=== PATIENT | female | born 1990 | race Hispanic/Latino ===

== ENCOUNTER 2018-10-08 06:59 | Outpatient (CLI) | payer OTHER | END 2018-10-08 08:20 | disposition home or self-care (01) | LOC: M LDO 06:59 | DX: O99.89 Other specified diseases and conditions complicating pregnancy, childbirth and the puerperium (principal); N89.8 Other specified noninflammatory disorders of vagina; Z3A.29 29 weeks gestation of pregnancy | CPT/HCPCS: 59025 ==

== ENCOUNTER 2018-12-28 15:01 | Inpatient (IN) | payer OTHER ==
[2018-12-28] VITALS (11 sets, daily range): BP systolic 112–135; BP diastolic 60–80
[~2018-12-28] VITALS: Ht 157.5 cm; Wt 77.9 kg
[~2018-12-28 15:01] MED LIST: PRENTAB9 PO
[2018-12-28] MEDS ORDERED: LACTATED RINGER'S 1000 ML IV STA (15:49)
--- NOTE | 2018-12-28 15:57 | HPEPDOC ---
Obstetrical History & Physical General Date of Admission Dec 28, 2018 at 15:01 History of Present Illness 27 y/o at 41+1 for scheduled IOL due to pending postdates. No complication s this preg. No LOF/VB/reg ctx's. Pos FM. Care Care: Good Care Dating Final EDC by: LMP, 1st trimester ([place]) Past Medical History Past Obstetrical History : Past Obstetrical History: Primgravida Past Medical History Medical History denies Surgical History: Denies/None Family History Significant Family History: No pertinent family hx Social History Marital Status: Single Psychosocial History: No pertinent psych hx * Smoker: non-smoker Alcohol: Denies Drugs: denies Abuse Violence Screening Have you been hit/kicked/slapp: No Have you been sexually assault: No Imunizations Tdap status: current Influenza Status: current Allergies Coded Allergies: No Known Allergies (Unverified , 10/08/18) Medications Scheduled Multivitamins/ ( 27-0.8 mg) 1 Tab Tab, 1 TAB PO DAILY Physical Examination Physical Examination GENERAL: Alert and oriented times three. ABDOMEN: Gravid and non-tender to touch. FETUS: Is vertex (VTX) by sterile vaginal examination (SVE), 1/50/-4/vtx by limited TAUS EXTREMITIES: No edema. Laboratory Data 24H LABS Laboratory Tests 2 12/28/18 15:33: Serology Scanned Report Hepatitis B Testing Urine Culture: No Growth Pertinent Laboratoy Data Blood Type: O+ RBC Antibody Screen: Negative HIV: Negative Hepatitis B: Negative Hepatitis C: Unknown Rapid Plasma Reagin: Nonreactive Rubella: Immune Varicella: Immune Chlamydia/Gonorrhea: Negative Group B Streptococcus: Negative Quad Screen Test: Negative Cystic Fibrosis: Negative Glucose Tolerance Test: 97 Anatomy Ultrasound Placenta Location: Anterior Normal Anatomy: Yes Placenta Previa: No Assessment Variability: Moderate Accelerations: Positive Decelerations: None Tocometer Contractions: No Assessment/Plan Assessment 41+1 for IOL Plan Admit and orient. Nursing Home Admissions Director and consent. Diet: clears Group B Streptococcus (GBS) neg Labs and intravenous (IV) per unit protocol. Counseled on Pitocin, cytotec, bulb and induction of labor (IOL). Lactated Ringers (LR): Bolus 1000 mL if decides on epidural, then at 125 mL/hr. Anticipate normal spontaneous delivery () C-S as appropriate. Sessions SESSIONS,DELMY Kim MD Dec 28, 2018 15:57
[2018-12-28] MEDS ORDERED: miSOPROStol 50 MCG 1/2 TAB (S0191) PO PRN (16:00)
[2018-12-28 16:20] LABS: HEMATOCRIT 33.9 % (36.0-47.0); HEMOGLOBIN 11.5 g/dl (12.0-15.5); MEAN CORPUSCULAR HEMOGLOBIN 29.8 pg (27.0-33.0); MEAN CORPUSCULAR HGB CONC 33.9 g/dl (32.0-36.5); MEAN CORPUSCULAR VOLUME 87.8 fl (80.0-96.0); PLATELET COUNT, AUTOMATED 314 10^3/uL (150-450); RED BLOOD COUNT 3.86 10^6/uL (4.00-5.40); WHITE BLOOD COUNT 9.2 10^3/uL (4.0-10.0)
[2018-12-28] MEDS: LR 1,000 ML IV SCH ×2 (16:34→21:52)
--- NOTE | 2018-12-28 21:30 | IPNPDOC ---
Text Note Date of Service The patient was seen on 12/28/18. NOTE FHT mostly Cat 1, other than a 7 min decel that was random, unprovoked and now completely resolved Cx now is /-3, more ant and softer Cook balloon placed 80U/40V Will transition to pitocin, plan on recheck 1-2 hrs after cook balloon out Sessions VS,Janet, I+O VSJanet I+O Laboratory Tests 12/28/18 16:14 Red Blood Count 3.86 L, Mean Corpuscular Volume 87.8, Mean Corpuscular Hemoglobin 29.8, Mean Corpuscular Hemoglobin Concent 33.9, Red Cell Distribution Width 13.3 Vital Signs Date Time Temp Pulse Resp B/P (MAP) Pulse Ox O2 Delivery O2 Flow Rate FiO2 12/28/18 18:43 97.4 77 18 135/78 (97) SESSIONS,EDLMY Kim MD Dec 28, 2018 21:30
[2018-12-28] MEDS ORDERED: LR 1,000 ML IV SCH (21:33)
[2018-12-28] MEDS ORDERED: OXYTOCIN DRIP 30 UNITS in APPROPRIATE DILUENT 1 EA IV SCH (21:45)
[2018-12-29] VITALS (34 sets, daily range): BP systolic 89–154; BP diastolic 51–90
--- NOTE | 2018-12-29 06:54 | IPNPDOC ---
Text Note Date of Service The patient was seen on 12/29/18. NOTE FHT Cat 1, reg ctx's, pain well controlled thus far On 18 mu/min pitocin Cx /-2 Plan on pitocin rest for ~1 hour, eat bfast and restart pitocin thereafter Sessions MD GROVER,Janet, I+O VSJanet I+O Laboratory Tests 12/28/18 16:14 Red Blood Count 3.86 L, Mean Corpuscular Volume 87.8, Mean Corpuscular Hemoglobin 29.8, Mean Corpuscular Hemoglobin Concent 33.9, Red Cell Distribution Width 13.3 Vital Signs Date Time Temp Pulse Resp B/P (MAP) Pulse Ox O2 Delivery O2 Flow Rate FiO2 12/29/18 04:34 97.7 68 18 111/63 (79) I&O- Last 24 Hours up to 6 AM 12/29/18 05:59 Output Total 2500 ml Balance -2500 ml SESSIONS,DELMY Kim MD Dec 29, 2018 06:54
[2018-12-29] MEDS: LR 1,000 ML IV SCH (07:49)
--- NOTE | 2018-12-29 12:14 | IPNPDOC ---
Text Note Date of Service The patient was seen on 12/29/18. NOTE Now s/p pit rest and breakfast this AM. Now with 3 hrs pitocin, at 10 mu/min Cx unchanged other than station, now 5/75/-1/vtx well applied, AROM with clr fluid Doing well. Recheck in 2-3 hrs, sooner prn. Sessions VS,Janet, I+O VS, Janet I+O Laboratory Tests 12/28/18 16:14 Red Blood Count 3.86 L, Mean Corpuscular Volume 87.8, Mean Corpuscular Hemoglobin 29.8, Mean Corpuscular Hemoglobin Concent 33.9, Red Cell Distribution Width 13.3 Vital Signs Date Time Temp Pulse Resp B/P (MAP) Pulse Ox O2 Delivery O2 Flow Rate FiO2 12/29/18 09:57 97.0 80 16 107/55 (72) I&O- Last 24 Hours up to 6 AM 12/29/18 06:00 Intake Total 2328 ml Output Total 2500 ml Balance -172 ml SESSIONS,DELMY Kim MD Dec 29, 2018 12:14
[2018-12-29] MEDS ORDERED: NALBUPHINE HCL 10 MG/ML AMP (J2300) IM ONE (12:15)
[2018-12-29] MEDS ORDERED: PROMETHAZINE INJ 25 MG/ML VIAL (J2550) IV ONE (12:15)
[2018-12-29] MEDS ORDERED: NALBUPHINE HCL 10 MG/ML AMP (J2300) IV ONE (12:15)
[2018-12-29] MEDS ORDERED: FENTANYL 2MCG/ML ROPIVACAINE 0.2% IN 0.9% NACL 100ML IVBAG As Ordered ONE (13:47)
[2018-12-29] MEDS ORDERED: ePHEDrine SULFATE 25 MG/5 ML(5MG/ML) SYRINGE IV PRN (15:45)
[2018-12-29] MEDS ORDERED: EPIDURAL COMMENT XX SCH (15:45)
[2018-12-29] MEDS ORDERED: LACTATED RINGER'S 1000 ML IV PRN (15:45)
[2018-12-29] MEDS ORDERED: REFRIGERATOR IV KEYS XX PRN (15:45)
[2018-12-29] MEDS ORDERED: FENTANYL/ROPIVACAINE/NACL BAG 100 ML EPIDURAL SCH (15:45)
[2018-12-29] MEDS ORDERED: diphenhydrAMINE INJ 50MG/ML VIAL (J1200) IV PRN (15:45)
[2018-12-29] MEDS ORDERED: ONDANSETRON 4MG/2ML VIAL (J2405) IV PRN ×2 (15:45→22:45)
[2018-12-29] MEDS ORDERED: EPIDURAL/PCA KEYS XX PRN (15:45)
[2018-12-29] MEDS ORDERED: NALOXONE INJ 0.4 MG/1 ML VIAL (J2310) IV PRN (15:45)
--- NOTE | 2018-12-29 16:39 | IPNPDOC ---
Text Note Date of Service The patient was seen on 12/29/18. NOTE Epidural now in place and pt feeling well FHT Cat 1 Pitocin at 16 mu/min Cx unchanged, IUPC placed If MVU's adeq will need a for arrest of dilation If inadeq will incr her pitocin to adequacy Sessions VS,Janet, I+O VSJanet, I+O Vital Signs Date Time Temp Pulse Resp B/P (MAP) Pulse Ox O2 Delivery O2 Flow Rate FiO2 12/29/18 15:53 97.3 82 16 92/51 (65) 12/29/18 14:22 99 I&O- Last 24 Hours up to 6 AM 12/29/18 06:00 Intake Total 2328 ml Output Total 2500 ml Balance -172 ml SESSIONS,DELMY Kim MD Dec 29, 2018 16:39
--- NOTE | 2018-12-29 20:37 | IPNPDOC ---
Text Note Date of Service The patient was seen on 12/29/18. NOTE FHT Cat 1, adeq MVU's last 4 hrs Cx unchanged, IUPC removed I rec for arrest of dilation, failed IOL IC obtained, Anesth/OR team mobilizing Sessions VS,Janet, I+O VS, Janet I+O Vital Signs Date Time Temp Pulse Resp B/P (MAP) Pulse Ox O2 Delivery O2 Flow Rate FiO2 12/29/18 18:51 98.0 71 18 114/59 (77) 12/29/18 14:22 99 I&O- Last 24 Hours up to 6 AM 12/29/18 06:00 Intake Total 2328 ml Output Total 2500 ml Balance -172 ml SESSIONS,DELMY Kim MD Dec 29, 2018 20:37
[2018-12-29] MEDS ORDERED: AZITHROMYCIN INJ 500 MG, VIAL MATE ADAPTER 1 EACH in D5W 250 ML IV ONE (20:45)
[2018-12-29] MEDS ORDERED: BICITRA 30ML SOLN UDC PO ONE (20:45)
[2018-12-29] MEDS ORDERED: OXYTOCIN INJ 10 UNITS/ML VIAL (J2590) As Ordered ONE (20:51)
[2018-12-29] MEDS ORDERED: LIDOCAINE 2% W/EPIN INJ 20ML **PRES FREE As Ordered ONE (20:51)
[2018-12-29] MEDS ORDERED: SODIUM BICARBONATE 8.4% INJ 50MEQ 50 ML VIAL As Ordered ONE (20:58)
[2018-12-29] MEDS ORDERED: miSOPROStol 200 MCG TAB (S0191) As Ordered ONE (21:32)
[2018-12-29] MEDS ORDERED: MORPHINE PRES-FREE INJ 10 MG/10 ML VIAL (J2274) As Ordered ONE (21:35)
[2018-12-29] MEDS ORDERED: ONDANSETRON 4MG/2ML VIAL (J2405) As Ordered ONE (21:35)
[2018-12-29] MEDS ORDERED: KETOROLAC 60 MG/2 ML VIAL (J1885) As Ordered ONE (21:42)
[2018-12-29] MEDS ORDERED: OXYTOCIN DRIP 30 UNITS in APPROPRIATE DILUENT 1 EA IV SCH (21:58)
[2018-12-29] MEDS ORDERED: MEASLES,MUMPS,RUBELLA VACCINE INJ (MMR-II) (90707) SC SCH (22:00)
[2018-12-29] MEDS ORDERED: PERCOCET 5MG/325MG TAB PO PRN ×3 (22:00→22:45)
[2018-12-29] MEDS ORDERED: METHYLERGONOVINE MALEATE 0.2 MG/ML VIAL (J2210) IM ONE (22:00)
[2018-12-29] MEDS ORDERED: RHOGAM 300 MCG (1500 IU) INJ (J2790) IM SCH (22:00)
[2018-12-29] MEDS ORDERED: miSOPROStol 200 MCG TAB (S0191) PR ONE (22:00)
[2018-12-29] MEDS ORDERED: METOCLOPRAMIDE INJ 10MG/2ML VIAL (J2765) IV PRN ×2 (22:00→22:45)
[2018-12-29] MEDS ORDERED: OXYTOCIN 30 UNITS IN 0.9% NaCl 500ML IV BAG (J2590) As Ordered ONE (22:06)
[2018-12-29] MEDS ORDERED: fentaNYL 100 MCG/2 ML INJECTION (J3010) IV PRN (22:45)
[2018-12-29] MEDS ORDERED: LR 1,000 ML IV SCH (22:45)
[2018-12-30] VITALS (8 sets, daily range): BP systolic 103–134; BP diastolic 55–79
[2018-12-30] MEDS: KETOROLAC 30 MG/ML VIAL (J1885) IV SCH ×3 (05:02→16:25)
[2018-12-30] MEDS ORDERED: LR 1,000 ML IV SCH (07:15)
[2018-12-30 07:20] LABS: HEMOGLOBIN 10.3 g/dl (12.0-15.5); MEAN CORPUSCULAR HGB CONC 34.3 g/dl (32.0-36.5); MEAN CORPUSCULAR VOLUME 87.5 fl (80.0-96.0); PLATELET COUNT, AUTOMATED 246 10^3/uL (150-450); RED BLOOD COUNT 3.43 10^6/uL (4.00-5.40)
[2018-12-30] MEDS: DOCUSATE SODIUM 100 MG CAP PO SCH ×2 (07:50→21:16)
[2018-12-30] MEDS: PRENATAL VITAMINS CHEWABLE TABLET PO SCH (07:50)
--- NOTE | 2018-12-30 08:07 | IPNPDOC ---
Text Note Date of Service The patient was seen on 12/30/18. NOTE POD1 PCD States feeling well, pain controlled with prescribed meds. Baby bonding and feeding well. No heavy VB. Lochia slowing. Ambulatory. Tolerating PO without issues. UO adequate with mccullough in place, but just barely. VSSAF NAD A&O RRR CTAB LE no C/C/E Ut at U-1, firm Bandage C/D/I CBC this AM appropriate a/p: Doing well. Cont routine postop care. LR at 125/hr now to improve her UOP. D/C likely in 48 hours. PFS consult due to her being all alone and recove ring from a . Sessions VS,Janet, I+O VSJanet I+O Laboratory Tests 12/30/18 06:57 Red Blood Count 3.43 L, Mean Corpuscular Volume 87.5, Mean Corpuscular Hemoglobin 30.0, Mean Corpuscular Hemoglobin Concent 34.3, Red Cell Distribution Width 13.5 Vital Signs Date Time Temp Pulse Resp B/P (MAP) Pulse Ox O2 Delivery O2 Flow Rate FiO2 12/30/18 06:31 98.1 81 18 113/55 (74) 100 I&O- Last 24 Hours up to 6 AM 12/30/18 05:59 Intake Total 2175 ml Output Total 3275 ml Balance -1100 ml SESSIONS,DELMY Kim MD Dec 30, 2018 08:07
[2018-12-31] MEDS: IBUPROFEN 800 MG TAB PO SCH ×3 (00:48→15:47)
[2018-12-31 02:00] VITALS: BP 127/69
[2018-12-31 06:44] VITALS: BP 117/71
--- NOTE | 2018-12-31 07:52 | IPNPDOC ---
Progress Note Date of Service: Dec 31, 2018 Day#: 2 Progress Note PPD/POD 2 SUBJECT: Ramesh is a 28yo [id number] s/p uncomplicated PLTCS at 41w2d on 12/29 for arrest of dilation when undergoing IOL for LTG, doing well POD 2. She has not been ambulating much. Voiding spontaneously without issue and tolerating regular diet. Breast feeding with nursing assistance. Reports lochia is like a normal period. Pain well controlled with just motrin overnight. No f/c/n/v/CP/SOB. Nursing reported patient being very "needy" overnight, constantly calling the nurse in to help with very basic things such as throwing wrappers into the trash. Also needed help with latching and didn't really ambulate. They state she was hostile regarding the fact that baby had PKU testing and umbilical cord cla mp was removed. She declined vitals a few times. Patient's story is different- reports nurses were "rude" to her last night. That they "weren't doing their job". She told me on first encounter this morning her partner is "in the field" and she plans to take a taxi home from the hospital. She has absolutely no help at home, no family assistance. She filled out paternity forms yesterday, so there is obviously something deeper going on. OBJECTIVE: VITAL SIGNS: Within normal limits, afebrile. Alert and oriented times three. Abdomen: Fundus firm at U-2. Soft, appropriately tender to palpation. pfannensteil incision covered by dry clean dressing. Extremities: no pain with palpation of calves Labs: pre-op H/H 11.5/33.9 post-op H/H 10.3/30 ASSESSMENT: Ramesh is a 28yo [id number] s/p uncomplicated PLTCS at 41w2d on 12/29 for arrest of dilation when undergoing IOL for LTG, doing well POD 2. Vitals within normal limits, afebrile, hemodynamically stable with no evidence of infection. Has some social issues going on as noted in HPI. PLAN: 1. Plan for discharge home tomorrow 2. Had long discussion with patient and day nurse regarding today's goal of fresh start. Social work has been consulted and patient is amenable to talking with them. I discussed that she needs to ambulate multiple times today and demonstrate that she can take care of both herself and her baby when she goes home. Will also involve the [employer] lia[employer] today. 2. Motrin TID for pain. Percocet prn 3. Encourage ambulation and use of IS 4. Regular diet Dr. Deepthi Thorne MD VS, I&O, 24H, Fishbone Vital Signs/I&O Vital Signs Date Time Temp Pulse Resp B/P (MAP) Pulse Ox O2 Delivery O2 Flow Rate FiO2 12/31/18 06:44 97.6 75 19 117/71 (86) 100 l I&O- Last 24 Hours up to 6 AM 12/31/18 06:00 Intake Total 2500 ml Output Total 2900 ml Balance -400 ml Deepthi Thorne MD Dec 31, 2018 07:52
[2018-12-31] MEDS: DOCUSATE SODIUM 100 MG CAP PO SCH ×2 (08:39→20:12)
[2018-12-31] MEDS: PRENATAL VITAMINS CHEWABLE TABLET PO SCH (08:40)
[2018-12-31] MEDS ORDERED: INFLUENZA QUADRIVALENT PF VACCINE 0.5ML SYRINGE (90686) IM ONE (09:00)
--- NOTE | 2018-12-31 13:00 | RO ---
DATE OF PROCEDURE: 12/29/2018 SURGEON: Dr. Boris De La Cruz BASKETBALL PLAYER: Nurse car repairer apprentice Dayanna Ruelas, who was essential in retraction of tissue planes, delivery of the baby and closure of all tissue planes. PREOPERATIVE DIAGNOSIS: Failed induction of labor with arrest dilation. POSTOPERATIVE DIAGNOSIS: Failed induction of labor with arrest dilation. ANESTHESIA: Epidural. ESTIMATED BLOOD LOSS: 700 mL. DRAINS: 100 mL in the Adamson catheter. FLUIDS REPLACED: 1300 mL of lactated Ringer's. PREOPERATIVE ANTIBIOTICS: Ancef 2 grams IV and azithromycin 500 mg. OPERATIVE PROCEDURE: Primary low transverse section. SPECIMENS: None. INDICATION: The patient was diagnosed with an arrest of dilation despite amniotomy and adequate contractions as measured with an intrauterine pressure catheter. FINDINGS: Low transverse uterine incision, clear fluid, straight occiput posterior presentation, male, score 8 and 9, 2960 grams, 6 pounds 8 ounces. DESCRIPTION: The patient was taken to the operating room with an IV in place. She was placed in dorsal supine position with a leftward tilt and prepped and draped after the epidural bolus was thought to be adequate. She already had a Adamson catheter in place. heart tones prior to prep were normal. She was prepped and draped in normal sterile fashion and a Pfannenstiel skin incision was carried down to the layer of fascia, which was nicked in the midline and extended bilaterally to the extent of the skin incision. Stanley clamps were placed on the superior and inferior aspects of the fascial incision and the underlying rectus muscles were dissected off sharply. The midline in the rectus muscles were and peritoneum was breeched with surgeon's digit and a stretching maneuver from both sides created an adequate peritoneal window. A bladder blade was placed. A bladder flap was created. A low transverse uterine incision was carried down to the amnion which was breeched and clear fluid was noted. The 's head was flexed, elevated and with fundal pressure from above easily delivered through the hysterotomy and through the skin incision. The corpus followed and infant was noted to have good tone and a spontaneous cry. The cord was clamped times two and cut and the infant was handed to the waiting resuscitation team. Cord blood was obtained. Fundal massage was performed with Pitocin in the IV running wide open and when the uterus was noted to be mich down the placenta was delivered with traction with a hysterotomy without difficulty. There were no trailing membranes. The uterus was delivered through the abdominal incision, wrapped in warm sponge and cleared of all clots and debris and dry sponges. The hysterotomy was closed from left to right with a running suture of #0 Vicryl locked. Imbrication stitch was used for left to right with #0 Monocryl. Irrigation was performed behind the uterus. The uterus was returned to the abdomen and any and all blood or clots were removed from the colic gutters and the vesicouterine peritoneum. Hemostasis was confirmed from the hysterotomy site. The peritoneum was closed from superior to inferior with running #2-0 Vicryl and the fascia was closed with a running #0 Vicryl from left to right. The subcutaneous tissue was copiously irrigated, made to be hemostatic and reapproximated #2-0 Vicryl from left to right. The skin was closed with a subcutaneous #4-0 Monocryl from left to right without difficulty. An Optifoam dressing was placed over the incision. The patient's legs were frogged and bimanual exam was performed with the uterus noted to be firm and at U. A small amount of clot was removed from the vagina and cervix. Of note, a single dose of intramuscular (IM) Methergine 0.2 was given during the closure of the lower uterine segment incision, which aided in her pain and sufficient tone to the uterus. I then prophylactically also at the end of the case placed 1000 mcg of Cytotec per rectum due to the patient have been fairly high dosed of Pitocin for greater than 24 hours. The patient was transferred from the operating room (OR) to the postanesthesia care unit (PACU) in stable condition with all counts correct including sponge, needle and instruments. TISH
[2018-12-31 15:05] VITALS: BP 121/69
[2018-12-31 18:00] VITALS: BP 131/82
[2019-01-01] MEDS: IBUPROFEN 800 MG TAB PO SCH ×3 (00:19→16:13)
[2019-01-01 06:13] VITALS: BP 151/93
[2019-01-01 07:56] VITALS: BP 147/75
[2019-01-01] MEDS: DOCUSATE SODIUM 100 MG CAP PO SCH ×2 (08:09→21:07)
--- NOTE | 2019-01-01 08:23 | IPNPDOC ---
Progress Note Date of Service: Jan 01, 2019 Progress Note SUBJECT: Ramesh is a 28yo [id number] s/p uncomplicated PLTCS at 41w2d on 12/29 for arrest of dilation when undergoing IOL for LTG, doing well POD 3. Difficulties interacting with nursing last night. Called security as wrong NSAID was given. Apparently not sleeping well. Not using narcotics as she doesn't want to be impaired caring for the baby. No f/c/n/v/CP/SOB. She plans to take a taxi home from the hospital and has no one at home to help her. I discussed parternity leave policy as she has absolutely no help at home, no family assistance. She filled out paternity forms yesterday. OBJECTIVE: VITAL SIGNS: Within normal limits, afebrile. She had elevated BP while upset this morning, but then 141/75 on repeat just now. Alert and oriented times three. Abdomen: Fundus firm at U-2. Soft, appropriately tender to palpation. pfannensteil incision covered by dry clean dressing. Does not want dressing off--reports Dr. De La Cruz wants two weeks on. Extremities: no pain with palpation of calves Labs: pre-op H/H 11.5/33.9 post-op H/H 10.3/30 ASSESSMENT: Ramesh is a 28yo P1 s/p uncomplicated PLTCS at 41w2d on 12/29 for arrest of dilation when undergoing IOL for LTG, doing well medically POD 3. Vitals within normal limits, afebrile, hemodynamically stable with no evidence of infection. Has some social issues going on as noted in HPI. PLAN: 1. Plan for discharge home after PFS consult. 2. Motrin TID for pain. Percocet prn 3. Encourage ambulation and use of IS 4. Regular diet VS, I&O, 24H, Fishbone Vital Signs/I&O Vital Signs Date Time Temp Pulse Resp B/P (MAP) Pulse Ox O2 Delivery O2 Flow Rate FiO2 01/01/19 07:56 147/75 (99) 01/01/19 06:13 97.0 78 18 12/31/18 15:05 97 WALTER CUENCA MD Jan 01, 2019 08:23
--- NOTE | 2019-01-01 08:28 | DS.PDOC ---
Discharge Summary General Date of Admission Dec 28, 2018 at 15:01 Date of Discharge 01/01/19 Discharge Summary PROCEDURES PERFORMED DURING STAY: Induction of Labor. 2) . ADMITTING DIAGNOSES: 1. Advanced gestational age. DISCHARGE DIAGNOSES: 1. Same COMPLICATIONS/CHIEF COMPLAINT: Induction. HISTORY OF PRESENT ILLNESS: Admitted at 41 2/7 weeks for IOL. HOSPITAL COURSE: Complicated by social/emotional support challenges. PFS consult pending at time of this writing. DISCHARGE MEDICATIONS: Please see below. ALLERGIES: Please see below. OBJECTIVE: VITAL SIGNS: Within normal limits, afebrile. Alert and oriented times three. Abdomen: Fundus firm at U-2. Soft, appropriately tender to palpation. pfannensteil incision covered by dry clean dressing. Extremities: no pain with palpation of calves Labs: pre-op H/H 11.5/33.9 post-op H/H 10.3/30 ASSESSMENT: Ramesh is a 28yo [id number] s/p uncomplicated PLTCS at 41w2d on 12/29 for arrest of dilation when undergoing IOL for LTG, doing well POD 3. Vitals within normal limits, afebrile, hemodynamically stable with no evidence of infection. Has some social issues going on as noted in HPI. PLAN: 1. Plan for discharge home. 2. Motrin TID for pain. Percocet prn 3. Encourage ambulation and use of IS 4. Regular diet DISPOSITION: Home if acceptable to PFS. DISCHARGE INSTRUCTIONS: 1. Self-care instructions given. F/u with Dr. De La Cruz in 10 days. ITEMS TO FOLLOWUP ON ON OUTPATIENT: 1. recovery. DISCHARGE CONDITION: [Stable]. TIME SPENT ON DISCHARGE: Greater than [45] minutes. Vital Signs/I&Os Vital Signs Date Time Temp Pulse Resp B/P (MAP) Pulse Ox O2 Delivery O2 Flow Rate FiO2 01/01/19 07:56 147/75 (99) 01/01/19 06:13 97.0 78 18 12/31/18 15:05 97 Discharge Medications Scheduled Multivitamins/ ( 27-0.8 mg) 1 Tab Tab, 1 TAB PO DAILY, (Reported) Allergies Coded Allergies: SEASONAL ALLERGIES (Verified Allergy, Intermediate, 12/28/18) WALTER CUENCA MD Jan 01, 2019 08:28
[2019-01-01] MEDS: PRENATAL VITAMINS CHEWABLE TABLET PO SCH (09:00)
[2019-01-01 18:16] VITALS: BP 139/79
--- NOTE | 2019-01-01 20:02 | IPNPDOC ---
Text Note Date of Service The patient was seen on 01/01/19. NOTE [id number] Spent approx 45 min in consultation with Ms. Victor from [facility] and CHORAL DIRECTOR caring for patient this am discussing plan of care for Ms. Blake Elena and consulting with Dr. Reza from about further evaluation. Dr. Reza agreed to come to the maternity unit and evaluate patient @ 1500. Dr. Reza did not arrive until 1830. This provider spoke with Ms. Lozano for approx 60 min. Attempted to educate patient on concerns of patient going home without assistance to care for the babe. Ms. Lozano reported that she could fly her dad in if there were any concerns and the FOB would be back from the field on Sunday. Discussed with yas mendiola my concern for her and her babe going home today without assistance. Ms. Lozano continued to state that she will be fine. Throughout the discussion her story/plan after discharge continued to change and evolved from mother and father or FOB or unit coming to help her. She then stated that they could call, but are not staying with her. States she is not in danger from the FOB or anyone else. During the night she called security on her nurse for refusing to give her motrin and then changing her advil order to motrin. The overnight nurse reported that she refused the motrin and contacted security. She was given education sheets on advil/motrin being the same medication. After education done she took her motrin. She has refused to walk the halls, stating that she is scared she is going to fall and won't be able to feed the babe if she is walking the halls. Education done on walking up and down the [place] at least once an hour during the day while awake to decrease risk of blood clots forming and demonstrating to staff that she is able walk on her own. Informed her of the importance of demonstrating her ability to go home and care for herself and her babe. Verbalized understanding. Pt agreed to walk the [place] at least once an hour. Staff informed me she never walked the halls today. Discussed FOB coming to assist her. States that he is in the field and will be back on Sunday. He will be able to check on her over the weekend once he is back. Education done on [employer] Duty Paternal leave. Recommended that she contact him so he can come take her home and stay with her. States he won't believe that she really needs him and she is just being needy. Ms. Lozano agreed to having me call the FOB and ask him to come back from the field. Called Mr. Hooper and left him a message prior to lunch. Called again at 1900. He answered and I recommended he come back from the field to assist Ms. Lozano. He stated he was in the field and was unable to come back. Reviewed Paternity Leave Policy and requested to speak to his Chain of Command. Mr. Hooper wanted to speak with the patient. Ms. Lozano was in his room. He planned to call her. Discussed the baby, getting sleep while caring for the babe. She continued to make excuses and become more defensive. Dr. Reza came and reported that the patient is psychotic and need admission to in-patient psych. Until admission patient should have a line of site sitter. Dr. Reza recommends cindy be removed from the room. Dr. Espinal, Charge Nurse JOSE MARTIN Martinez, Dr. Reza, MARICEL Scott, and JOSE MARTIN Steiner spent 15 minutes discussing the plan of care. Dr. Reza also recommended a drug screen and then prn medication for anxiety. FOB called back to discuss his plan for her NCO to pick her up. Informed him I would call him back. Per Dr. Reza recommendation. Called FOB and recommend he be here tomorrow at the hospital by noon. FOB states he is in no relationship with Ms. Lozano. He requested multiple times what is going on. Informed him that I am unable to give out any i nformation. States he only wants to be there for his son. I recommend he be here by noon tomorrow. Discussed that he is able to contact Dr. Espinal via the nurses on maternity if she is having any issues with his chain of command. SBAR given to Dr. Espinal. Cindy has been removed from room for assessment. Cindy will remain in locked nursery. Dr. Espinal and myself are going to discuss plan for admission to in-pt psych tomorrow with the patient. VS,Fishbone, I+O VS, Fishbone, I+O Vital Signs Date Time Temp Pulse Resp B/P (MAP) Pulse Ox O2 Delivery O2 Flow Rate FiO2 01/01/19 18:16 99.4 80 18 139/79 99 99 CARMELA COBOS CNM Jan 01, 2019 20:02
--- NOTE | 2019-01-01 20:23 | MHIPNPDOC ---
[facility] Progress Note Progress Note DATE OF SERVICE: 01/01/19 HISTORY: This is a 28 year old female who delivered a baby ( C section) on December. Staff reports she has been very labile, she gets very defensive, she gets confused at times, she says she has been having a hard time with staff because they lie to her, because they don't set goals early in the morning, because they come late at night and they tell her she has not been feeding her baby but everything is their fault because they didn't give her the formula she had requested for the baby. She says it's her decision if she nurses the baby or if she gives him formula. she tells me that staff don't help her to hold the diapers and they don't put them in the trash, they are just harassing her. She says that they keep calling her boyfriend a "" but she is not ma rried to him. At that time, the father of her child called her and she became extremely tearful, she started crying, sobbing, she complained to him that "all these women are the ones who are requesting that you take 3 weeks leave, I didn't ask you to take a leave of absence, it's them. They are the ones that are calling you my ". When I tried to get some information from her. She was extremely defensive, she is very paranoid, she is labile, she cries, she is angry. When I asked if she had a support system in this area, she only told me that she had her father in [facility] and she could ask him to come to this area. She never told me where is her family. VITAL SIGNS: See below. NEW TEST RESULTS: See below CURRENT MEDICATIONS: See below. MENTAL STATUS EXAMINATION: Patient is a 28-year old female, who is alert, uncooperative, walking in the room half dressed, angry. Speech: Is tangential and circumstantial. Incoherent. Language skills are poor at this time because she is not capable of keeping a straight conversation. She is disorganized Thought processes including: Disorganized, tangential, circumstantial, paranoid Thought content: Paranoid thoughts, angry thoughts. Abstract reasoning, and computation: Unable to assess, she is too labile, too defensive. Description of associations: loose Description of abnormal or psychotic thoughts: Paranoid thoughts, she denies HI, she denies SI (angrily she answers, she got offended) Judgment: Poor. Insight: Poor. Orientation: to place and person. Recent and remote memory: not assessed at this time. patient is psychotic. Attention span and concentration: she is extremely distractible, disorganized. Fund of knowledge: Unable to assess, patient is very unstable Mood: Angry/irritable/depressed Affect: Labile, congruent with mood DIAGNOSES: 1. Another specified psychotic disorder 2. R/O post psychosis 3. R/O Bipolar disorder, mixed 4. R/O Major Depressive disorder, with psychosis 5. R/O Delirium 6. R/O [id number] induced psychotic disorder ASSESSMENT: Patient is unstable, very labile, paranoid. She could be experiencing a manic episode, there's a sense of entitlement. she told me she was harassed in school because she was a pretty girl, the prettiest in her classroom. she wants staff to do what she should be doing for her baby. she could be manic but we don't have a urine toxicology to be able to r/o if this is secondary to drug use/misuse. Staff reports she gets worse at night, but she has irrational thoughts during the morning hours too although they are not that bad. She is not capable of responding questions without getting agitated and she twists everything she is told. Patient needs inpatient hospitalization at this time but [facility] is full, we would have to wait until tomorrow to transfer her. There seems to be a problem with the father of the child because he told one of the doctors that he was not with her, denies having a relationship with her. She will need antipsychotics and possibly a mood stabilizer. She is not breast feeding. MANAGEMENT PLAN: Recommend Zyprexa Zydis 5 mgs PO Q6H PRN for anxiety/agitation. If she takes Zyprexa, she shouldn't take Ativan. She will need to be transferred to [facility]. She needs to on 1:1 observation and the baby needs to be removed. She apparently has no social or family support in this area and the father of the child is denying to have a relationship. CPS is involved in this case. TIME SPENT: 45 minutes. Vital Signs Vital Signs Date Time Temp Pulse Resp B/P (MAP) Pulse Ox O2 Delivery O2 Flow Rate FiO2 01/01/19 18:16 99.4 80 18 139/79 (99) 99 Current Medications Current Medications Diphenhydramine HCl (Benadryl) 12.5 mg Q4HP PRN IV ITCHING; Start 12/29/18 at 15:45; Stop 12/29/18 at 22:01; Status DC Docusate Sodium (Colace) 100 mg BID PO Last administered on 01/01/19at 08:09; Start 12/30/18 at 09:00 Ephedrine Sulfate (EPHEDrine SULFATE (5MG/ML)) 5 mg Q3MP PRN IV HYPOTENSION; Start 12/29/18 at 15:45; Stop 12/29/18 at 22:01; Status DC Fentanyl Citrate (Sublimaze) 25 mcg Q5MP PRN IV MODERATE PAIN (PS 4-7); Start 12/29/18 at 22:45; Stop 12/29/18 at 23:44; Status DC Home Med (Med Rec Complete!) ASDIRECTED XX ; Start 12/28/18 at 15:30; Stop 12/28/18 at 15:30; Status DC Ibuprofen (Advil) 800 mg Q8H PO Last administered on 01/01/19at 16:13; Start 12/31/18 at 00:00 Ketorolac Tromethamine (ToRADol) 30 mg Q6H IV Last administered on 12/30/18at 16:25; Start 12/30/18 at 04:00; Stop 12/30/18 at 16:01; Status DC Lactated Ringer's 1,000 ml @ 100 mls/hr Q10H IV ; Start 12/29/18 at 22:45; Stop 12/29/18 at 23:44; Status DC Lactated Ringer's 1,000 ml @ 125 mls/hr Q8H IV Last administered on 12/29/18at 07:49; Start 12/28/18 at 15:49; Stop 12/29/18 at 22:01; Status DC Lactated Ringer's 1,000 ml @ 125 mls/hr Q8H IV ; Start 12/28/18 at 21:33; Stop 12/28/18 at 21:36; Status DC Lactated Ringer's 1,000 ml @ 125 mls/hr Q8H IV Last administered on 12/30/18at 07:51; Start 12/30/18 at 07:15; Stop 12/30/18 at 14:17; Status DC Lactated Ringer's (Lactated Ringer'S) 500 ml BOLUS PRN IV SEE LABEL COMMENTS; Start 12/29/18 at 15:45; Stop 12/29/18 at 22:01; Status DC Lactated Ringer's (Lactated Ringer'S) 1,000 ml BOLUS STAT IV Last administered on 12/28/18at 15:49; Start 12/28/18 at 15:49; Stop 12/28/18 at 15:54; Status DC Measles/Mumps/ Rubella Vaccine Live (M-M-R Ii w/ Diluent) 0.5 ml ASDIRECTED SC ; Start 12/29/18 at 22:00 Metoclopramide HCl (REGLAN INJection) 10 mg Q6HP PRN IV NAUSEA OR VOMITING; Start 12/29/18 at 22:00 Metoclopramide HCl (REGLAN INJection) 10 mg Q6HP PRN IV NAUSEA OR VOMITING; Start 12/29/18 at 22:45; Stop 12/29/18 at 23:44; Status DC Misoprostol (Cytotec) 50 mcg Q4HP PRN PO per SOP induction Last administered on 12/28/18at 16:34; Start 12/28/18 at 16:00; Stop 12/28/18 at 21:34; Status DC Naloxone HCl (Narcan) 0.1 mg Q5MP PRN IV SEE LABEL COMMENTS; Start 12/29/18 at 15:45; Stop 12/29/18 at 22:01; Status DC Non-Formulary Medication ( See Comment Field Below ) ASDIRECTED XX ; Start 12/29/18 at 15:45; Stop 12/29/18 at 22:01; Status DC Non-Formulary Medication (Epidural/CHILD NUTRITION DIRECTOR [place]) USE THIS ENTRY TO VEND ... ASDIRECTED PRN XX SEE LABEL COMMENTS; Start 12/29/18 at 15:45; Stop 12/29/18 at 22:01; Status DC Non-Formulary Medication (Refrigerator Ness) ASDIRECTED PRN XX SEE LABEL COMMENTS; Start 12/29/18 at 15:45; Stop 12/29/18 at 22:01; Status DC Ondansetron HCl (ZOFRAN INJection) 4 mg Q4HP PRN IV NAUSEA OR VOMITING; Start 12/29/18 at 22:45; Stop 12/29/18 at 23:44; Status DC Ondansetron HCl (ZOFRAN INJection) 4 mg Q6HP PRN IV NAUSEA; Start 12/29/18 at 15:45; Stop 12/29/18 at 22:01; Status DC Oxycodone/ Acetaminophen (Percocet 5mg/ 325mg Tablet) 1 tab ASDIRECTED PRN PO MILD/MODERATE PAIN (PS 1-7); Start 12/29/18 at 22:45; Stop 12/29/18 at 23:44; Status DC Oxycodone/ Acetaminophen (Percocet 5mg/ 325mg Tablet) 1 tab Q4HP PRN PO MILD PAIN (PS 1-4); Start 12/29/18 at 22:00 Oxycodone/ Acetaminophen (Percocet 5mg/ 325mg Tablet) 2 tab Q4HP PRN PO MODERATE/SEVERE PAIN (PS 5-10); Start 12/29/18 at 22:00 Oxytocin 30 units/ IV Miscellaneous Supplies 500 ml @ 125 mls/hr Q4H IV Last administered on 12/29/18at 22:31; Start 12/29/18 at 21:58; Stop 12/30/18 at 01:57; Status DC Oxytocin 30 units/ IV Miscellaneous Supplies 500 ml @ 0 mls/hr DRIP IV Last administered on 12/28/18at 22:31; Start 12/28/18 at 21:45; Stop 12/29/18 at 22:01; Status DC Prenat Multivit/ Interactive Media Marketing Specialist/Iron/Folic Ac ( Vitamins) 1 tab DAILY PO Last administered on 12/30/18at 07:50; Start 12/30/18 at 09:00 Rho Immune Globulin (Rhogam Injection) 300 mcg ASDIRECTED IM ; Start 12/29/18 at 22:00 Allergies Coded Allergies: SEASONAL ALLERGIES (Verified Allergy, Intermediate, 12/28/18) JYOTSNA TAYLOR MD Jan 01, 2019 20:23
[2019-01-02 00:05] LABS: AMPHETAMINES URINE REFLEX NEGATIVE (NEGATIVE); BARBITURATES URINE REFLEX NEGATIVE (NEGATIVE); BENZODIAZEPINES URINE REFLEX NEGATIVE (NEGATIVE); CANNABINOIDS URINE REFLEX NEGATIVE (NEGATIVE); COCAINE METABOLITE URINE REFLE NEGATIVE (NEGATIVE); METHADONE URINE REFLEX NEGATIVE (NEGATIVE); OPIATES URINE REFLEX NEGATIVE (NEGATIVE); PHENCYCLIDINE URINE REFLEX NEGATIVE (NEGATIVE)
[2019-01-02] MEDS: IBUPROFEN 800 MG TAB PO SCH ×3 (00:18→16:00)
[2019-01-02 05:48] VITALS: BP 133/75
[2019-01-02 07:30] VITALS: BP 128/80
[2019-01-02] MEDS: DOCUSATE SODIUM 100 MG CAP PO SCH (08:01)
[2019-01-02] MEDS: PRENATAL VITAMINS CHEWABLE TABLET PO SCH (08:01)
--- NOTE | 2019-01-02 08:51 | IPNPDOC ---
Text Note Date of Service The patient was seen on 01/02/19. NOTE SUBJECT: Ramesh is a 28yo [id number] s/p uncomplicated PLTCS at 41w2d on 12/29 for arrest of dilation when undergoing IOL for LTG, doing well POD 4. She had no outbursts lasnight, nor any difficulties. She has direct 1:1 care. Says she feels the best she has felt during her stay in terms of pain and rest. Not using narcotics as she doesn't want to be impaired caring for the baby. No f/c/n /v/CP/SOB. OBJECTIVE: VITAL SIGNS: Within normal limits, afebrile. Alert and oriented times three. Abdomen: Fundus firm at U-2. Soft, appropriately tender to palpation. pfannensteil incision covered by dry clean dressing. Does not want dressing off--reports Dr. De La Cruz wants two weeks on. Extremities: no pain with palpation of calves. tr edema Labs: pre-op H/H 11.5/33.9 post-op H/H 10.3/30 ASSESSMENT: Ramesh is a 28yo P1 s/p uncomplicated PLTCS at 41w2d on 12/29 for arrest of dilation when undergoing IOL for LTG, doing well from a med-surg standpoint on POD 4. It seems like she is doing well psychiatrically. Psych will see her this AM. Vitals within normal limits, afebrile, hemodynamically stable with no evidence of infection. Social issues seem complex. PLAN: 1. Plan for [facility] admission this morning per psych last night. 2. Motrin TID for pain. Percocet prn 3. Encourage ambulation and use of IS 4. Regular diet VS,Fishbone, I+O VS, Fishbone, I+O Vital Signs Date Time Temp Pulse Resp B/P (MAP) Pulse Ox O2 Delivery O2 Flow Rate FiO2 01/02/19 05:48 98.1 76 16 133/75 (94) 01/01/19 18:16 99 WALTER CUENCA MD Jan 02, 2019 08:51
--- NOTE | 2019-01-02 12:39 | MHIPNPDOC ---
[facility] Progress Note Progress Note DATE OF SERVICE: 01/02/19 HISTORY: This is a 28 year old female who delivered a baby ( C section) on December. Staff reports she has been very labile, she gets very defensive, she gets confused at times, she says she has been having a hard time with staff because they lie to her, because they don't set goals early in the morning, because they come late at night and they tell her she has not been feeding her baby but everything is their fault because they didn't give her the formula she had requested for the baby. She says it's her decision if she nurses the baby or if she gives him formula. she tells me that staff don't help her to hold the diapers and they don't put them in the trash, they are just harassing her. She says that they keep calling her boyfriend a "" but she is not ma rried to him. At that time, the father of her child called her and she became extremely tearful, she started crying, sobbing, she complained to him that "all these women are the ones who are requesting that you take 3 weeks leave, I didn't ask you to take a leave of absence, it's them. They are the ones that are calling you my ". When I tried to get some information from her. She was extremely defensive, she is very paranoid, she is labile, she cries, she is angry. When I asked if she had a support system in this area, she only told me that she had her father in [facility] and she could ask him to come to this area. She never told me where is her family. Today, 01/02/19 the patient looks rested, she is more cooperative, she is cohere nt, not tangential, not circumstantial. She is able to have a normal conversation with me without having outbursts, she is not crying, not angry, not irritable. VITAL SIGNS: See below. NEW TEST RESULTS: See below CURRENT MEDICATIONS: See below. MENTAL STATUS EXAMINATION: Patient is a 28-year old female, who is alert, cooperative, laying in bed, wearing hospital clothes.. Speech: Is normal in rate, tone and volume. spontaneous and fluent. Language skills are good. Thought processes including: linear, coherent. Thought content: Anxious thoughts about taking care of her baby, she says that she was worried about him not eating properly but since he has been drinking her bottle, she is less worried.. Abstract reasoning, and computation: Good Description of associations: Intact Description of abnormal or psychotic thoughts: Denies SI/HI, denies AV paola lucinations and denies thought delusions Judgment: improving Insight: limited Orientation: x3 Recent and remote memory: Intact Attention span and concentration: good. Language: appropriate. Fund of knowledge: average. Mood: Anxious. Affect: congruent with mood, her voice is shaky when she speaks. DIAGNOSES: 1. Post blues 2. Adjustment disorder with disturbance of mood and affect. 3. Situational anxiety secondary to being first time mother, being alone in this area without family/friends ASSESSMENT: The patient had a good night sleep last night because the baby was removed from her side and she knew he was being taken care of. She had told me yesterday she had trouble sleeping before. She was overwhelmed, it is her first child, she doesn't have a relationship with the father of her baby, apparently the baby is the result of a casual encounter and she says she doesn't want to feel as if she is imposing her presence or her life or her problems onto him but she knows that they have a good relationship and if she needs him he will be there for her. she mentioned that there's a person at [place], her name is Kerwin and apparently this persons helps new mothers through the adaptation period of having children and taking care of them. She helps them, she says with teaching them how to breast feed, how to take care of the baby and themselves. She says that she has a friend and she said: "all what I'm going to say is that if I need this person, that person will be at my door to help me". I made special emphasis on her support because she doesn't look psychotic now, she is not crying like yesterday but she is very vulnerable, she just had a child, she has personal problems and she might find herself in a difficult situation with her physical/emotional health and she needs to speak to someone and ask for help. When I asked her, once again about her mother or siblings, if they would be of support she changed the conversation but one of the Nurses told me that she facetimed with the patient's mother just after the patient delivered and that the patient's mother was very appropriate, thanked the Nurse. this Nurse says mom lives in [place]. This Nurse says the patient was wonderful with her, appropriate, thankful. in a nutshell, I don't think the patient needs to come down to [facility], she is not suicidal, not homicidal and not psychotic. I think she was reacting to the stressors in her life and trying to pull everything together, was not easy. However, I still feel there's an issue with her not having support in her life because she could become overwhelmed again and in that case she would need someone to help her out. I spoke with Dr. Espinal who said he would verify if Anasthasia really exists. The CPS worker, Ricardo Cabrera says he had a conversation with the father of the child and the father of the child told him he could come at night to her home and help her out, check on the baby and on her. CPS worker said they can have [employer] involved, it would be another source of support for her, although they don't go to patient's homes. THE PATIENT NEEDS SUPPORT AND SUPERVISION, she doesn't fullfill criteria for going to [facility] MANAGEMENT PLAN: Verify if she really has support, verify with FD if she can get staff members or peers coming up to help her, to/set eyes on her and the baby. I will suggest to the patient to go to [facility], she can always walk in if she needs to. TIME SPENT: 45 minutes. Vital Signs Vital Signs Date Time Temp Pulse Resp B/P (MAP) Pulse Ox O2 Delivery O2 Flow Rate FiO2 01/02/19 05:48 98.1 76 16 133/75 (94) 01/01/19 18:16 99 Laboratory Data 24H Labs Laboratory Tests 2 01/01/19 23:30: Urine Amphetamines Screen NEGATIVE, Urine Benzodiazepines Screen NEGATIVE, Urine Opiates Screen NEGATIVE, Urine Methadone Screen NEGATIVE, Urine Barbiturates Screen NEGATIVE, Urine Phencyclidine Screen NEGATIVE, Urine Cocaine Metabolite Screen NEGATIVE, Urine Cannabinoids Screen NEGATIVE Current Medications Current Medications Diphenhydramine HCl (Benadryl) 12.5 mg Q4HP PRN IV ITCHING; Start 12/29/18 at 15:45; Stop 12/29/18 at 22:01; Status DC Docusate Sodium (Colace) 100 mg BID PO Last administered on 01/02/19at 08:01; Start 12/30/18 at 09:00 Ephedrine Sulfate (EPHEDrine SULFATE (5MG/ML)) 5 mg Q3MP PRN IV HYPOTENSION; Start 12/29/18 at 15:45; Stop 12/29/18 at 22:01; Status DC Fentanyl Citrate (Sublimaze) 25 mcg Q5MP PRN IV MODERATE PAIN (PS 4-7); Start 12/29/18 at 22:45; Stop 12/29/18 at 23:44; Status DC Home Med (Med Rec Complete!) ASDIRECTED XX ; Start 12/28/18 at 15:30; Stop 12/28/18 at 15:30; Status DC Ibuprofen (Advil) 800 mg Q8H PO Last administered on 01/02/19at 08:01; Start 12/31/18 at 00:00 Ketorolac Tromethamine (ToRADol) 30 mg Q6H IV Last administered on 12/30/18at 16:25; Start 12/30/18 at 04:00; Stop 12/30/18 at 16:01; Status DC Lactated Ringer's 1,000 ml @ 100 mls/hr Q10H IV ; Start 12/29/18 at 22:45; Stop 12/29/18 at 23:44; Status DC Lactated Ringer's 1,000 ml @ 125 mls/hr Q8H IV Last administered on 12/29/18at 07:49; Start 12/28/18 at 15:49; Stop 12/29/18 at 22:01; Status DC Lactated Ringer's 1,000 ml @ 125 mls/hr Q8H IV ; Start 12/28/18 at 21:33; Stop 12/28/18 at 21:36; Status DC Lactated Ringer's 1,000 ml @ 125 mls/hr Q8H IV Last administered on 12/30/18at 07:51; Start 12/30/18 at 07:15; Stop 12/30/18 at 14:17; Status DC Lactated Ringer's (Lactated Ringer'S) 500 ml BOLUS PRN IV SEE LABEL COMMENTS; Start 12/29/18 at 15:45; Stop 12/29/18 at 22:01; Status DC Lactated Ringer's (Lactated Ringer'S) 1,000 ml BOLUS STAT IV Last administered on 12/28/18at 15:49; Start 12/28/18 at 15:49; Stop 12/28/18 at 15:54; Status DC Measles/Mumps/ Rubella Vaccine Live (M-M-R Ii w/ Diluent) 0.5 ml ASDIRECTED SC ; Start 12/29/18 at 22:00 Metoclopramide HCl (REGLAN INJection) 10 mg Q6HP PRN IV NAUSEA OR VOMITING; Start 12/29/18 at 22:00 Metoclopramide HCl (REGLAN INJection) 10 mg Q6HP PRN IV NAUSEA OR VOMITING; Start 12/29/18 at 22:45; Stop 12/29/18 at 23:44; Status DC Misoprostol (Cytotec) 50 mcg Q4HP PRN PO per SOP induction Last administered on 12/28/18at 16:34; Start 12/28/18 at 16:00; Stop 12/28/18 at 21:34; Status DC Naloxone HCl (Narcan) 0.1 mg Q5MP PRN IV SEE LABEL COMMENTS; Start 12/29/18 at 15:45; Stop 12/29/18 at 22:01; Status DC Non-Formulary Medication ( See Comment Field Below ) ASDIRECTED XX ; Start 12/29/18 at 15:45; Stop 12/29/18 at 22:01; Status DC Non-Formulary Medication (Epidural/WEBBING WEAVER [place]) USE THIS ENTRY TO VEND ... ASDIRECTED PRN XX SEE LABEL COMMENTS; Start 12/29/18 at 15:45; Stop 12/29/18 at 22:01; Status DC Non-Formulary Medication (Refrigerator Ness) ASDIRECTED PRN XX SEE LABEL COMMEN TS; Start 12/29/18 at 15:45; Stop 12/29/18 at 22:01; Status DC Ondansetron HCl (ZOFRAN INJection) 4 mg Q4HP PRN IV NAUSEA OR VOMITING; Start 12/29/18 at 22:45; Stop 12/29/18 at 23:44; Status DC Ondansetron HCl (ZOFRAN INJection) 4 mg Q6HP PRN IV NAUSEA; Start 12/29/18 at 15:45; Stop 12/29/18 at 22:01; Status DC Oxycodone/ Acetaminophen (Percocet 5mg/ 325mg Tablet) 1 tab ASDIRECTED PRN PO MILD/MODERATE PAIN (PS 1-7); Start 12/29/18 at 22:45; Stop 12/29/18 at 23:44; Status DC Oxycodone/ Acetaminophen (Percocet 5mg/ 325mg Tablet) 1 tab Q4HP PRN PO MILD PAIN (PS 1-4); Start 12/29/18 at 22:00 Oxycodone/ Acetaminophen (Percocet 5mg/ 325mg Tablet) 2 tab Q4HP PRN PO MODERATE/SEVERE PAIN (PS 5-10); Start 12/29/18 at 22:00 Oxytocin 30 units/ IV Miscellaneous Supplies 500 ml @ 125 mls/hr Q4H IV Last administered on 12/29/18at 22:31; Start 12/29/18 at 21:58; Stop 12/30/18 at 01:57; Status DC Oxytocin 30 units/ IV Miscellaneous Supplies 500 ml @ 0 mls/hr DRIP IV Last administered on 12/28/18at 22:31; Start 12/28/18 at 21:45; Stop 12/29/18 at 22:01; Status DC Prenat Multivit/ Iron Post/Iron/Folic Ac ( Vitamins) 1 tab DAILY PO Last administered on 12/30/18at 07:50; Start 12/30/18 at 09:00 Rho Immune Globulin (Rhogam Injection) 300 mcg ASDIRECTED IM ; Start 12/29/18 at 22:00 Allergies Coded Allergies: SEASONAL ALLERGIES (Verified Allergy, Intermediate, 12/28/18) JYOTSNA TAYLOR MD Jan 02, 2019 12:39
[2019-01-02] MEDS ORDERED: COLA100C5 PO (17:08)
[2019-01-02] MEDS ORDERED: IBUP-1114 PO (17:11)
[2019-01-02] MEDS ORDERED: OXYC1TAB23 PO (17:11)
== END 2019-01-02 18:00 | disposition home or self-care (01) | DRG 773 ==
LOC: M LDI 15:01 → M OBS 12-29 23:30
PROVIDERS: ADMIT Obstetrics & Gynecology; ATTEND Obstetrics & Gynecology
PROC: 3E0P7GC Introduction of Other Therapeutic Substance into Female Reproductive, Via Natural or Artificial Opening (ICD-10-PCS; 2018-12-28)
PROC: 10907ZC Drainage of Amniotic Fluid, Therapeutic from Products of Conception, Via Natural or Artificial Opening (ICD-10-PCS; 2018-12-29)
PROC: 10D00Z1 Extraction of Products of Conception, Low, Open Approach (ICD-10-PCS; principal; 2018-12-29 20:58)
DX: O48.0 Post-term pregnancy (principal); Z3A.41 41 weeks gestation of pregnancy; O62.0 Primary inadequate contractions; O61.0 Failed medical induction of labor; O99.344 Other mental disorders complicating childbirth; F53.0 Postpartum depression; Z37.0 Single live birth; F43.25 Adjustment disorder with mixed disturbance of emotions and conduct

== ENCOUNTER 2019-08-10 03:38 | Emergency (ER) | payer OTHER ==
[2019-08-10 03:38] VITALS: BP 138/87
[~2019-08-10 03:38] MED LIST changes: +COLA100C5 PO; +IBUP-1114 PO; +OXYC1TAB23 PO
== END 2019-08-10 04:25 | disposition left against medical advice (07) ==
LOC: M ED 03:38
DX: Z53.21 Procedure and treatment not carried out due to patient leaving prior to being seen by health care provider (principal)